=== PATIENT | male | born 1940 | race Caucasian/White ===

== ENCOUNTER 2016-04-16 06:40 | Inpatient (IN) | payer MEDICARE, BC ==
--- NOTE | 2016-04-13 18:00 | PREOPHP ---
DATE OF ADMISSION: 04/16/2016 SURGEON: Faizan Dowd MD CHIEF COMPLAINT: The patient is to be admitted for right shoulder surgery on 04/16/[address] Grady kumar. 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 The patient is now scheduled for right shoulder surgery by Dr. Dowd. PAST MEDICAL HISTORY: Hypertension, type 2 diabetes mellitus, chronic kidney disease stage III, dys lipidemia, gout, coronary artery disease. MEDICATIONS: 1. Avapro 300 mg p.o. daily. 2. Hydrochlorothiazide 25 mg 1/2 tab p.o. daily. 3. Lipitor 20 mg p.o. daily. 4. Atenolol 25 mg p.o. b.i.d. 5. Allopurinol 200 mg p.o. daily. 6. Levemir insulin 40 units subcutaneously daily. 7. Aspirin 81 mg p.o. daily, on hold prior to surgery. 8. Folic acid 1 mg p.o. daily. 9. Onglyza 2.5 mg p.o. daily. ALLERGIES: NO KNOWN ALLERGIES. FAMILY HISTORY: Noncontributory. SOCIAL HISTORY: The patient is and is retired. He smoked cigarettes in the past but has no t smoked in recent years. He drinks alcohol only occasionally. REVIEW OF SYSTEMS: CONSTITUTIONAL: No fever or chills. RESPIRATORY: No shortness of breath, no cough. CARDIOVASCULAR: No chest pain or palpitations. GASTROINTESTINAL: No nausea, vomiting, abdominal pain, diarrhea, constipation, hematochezia or brody na. GENITOURINARY: No dysuria. MUSCULOSKELETAL: Severe pain in the right shoulder recently as noted above. NEUROLOGICAL: No focal weakness, tremors, seizures. PHYSICAL EXAMINATION: GENERAL: Reveals a well-developed, well-nourished man in no distress. VITAL SIGNS: Blood pressure 136/76, heart rate 72 and regular, respiratory rate is 16, temperature 98 degrees. HEENT: EOM full, sclerae are nonicteric Oral mucous membranes moist. NECK: Supple, without adenopathy. CHEST: Clear to auscultation. HEART: Regular rhythm, no rub. ABDOMEN: Soft, nontender. EXTREMITIES: No cyanosis, clubbing or edema. NEUROLOGICAL: The patient is alert and responsive. LABORATORY DATA: Chest x-ray done 04/07/2016 shows normal heart size, clear lung larson. EKG to be done under the direction of the patient's regular sheetmetal patternmaker, Dr. Vlad Sykes. Blood and urine test results are pending. ASSESSMENT: 1. Right shoulder arthritis, scheduled for surgery. 2. Hypertension, controlled. 3. Type 2 diabetes mellitus, controlled. 4. Chronic kidney stage III, stable. RECOMMENDATIONS: 1. Await results of blood and urine testing, cardiology clearance per patient's sheetmetal patternmaker, Dr. Yoshi Sykes. 2. If above satisfactory, the patient is cleared for surgery. Dictated By: ANDI RIOS/HERNANDO Conf#: [id number] DID#: [id number]
[2016-04-15 14:28] VITALS: BMI 25.8
[2016-04-16] VITALS (21 sets, daily range): BP systolic 112–198; BP diastolic 57–98; PULSE 49–72; RESP 14–21; Ht 185.4 cm; Wt 88.0 kg
[~2016-04-16] VITALS: Ht 185.4 cm; Wt 88.0 kg
[2016-04-16] MEDS ORDERED: BUPIVACAINE 0.5% (SDV) 30 ML, morphine SULFATE (PF) 8 MG, EPINEPHrine 0.3 MG, KETOROLAC... IRR SCH ×7 (07:00)
[2016-04-16] MEDS ORDERED: DEXAMETHASONE 1 MG TAB PO ONE (07:00)
[2016-04-16] MEDS ORDERED: CEFAZOLIN 1 GM INJ ONE (07:00)
[2016-04-16] MEDS ORDERED: CEFAZOLIN 2 GM/50 ML (PMX) 50 ML IVPB ONE (07:00)
[2016-04-16] MEDS ORDERED: TRANEXAMIC ACID 1,000 MG in SOD CHLORIDE 0.9% 100 ML IVPB ONE (07:00)
[2016-04-16] MEDS ORDERED: traMADol 50 MG TAB PO ONE (07:00)
[2016-04-16] MEDS ORDERED: GABAPENTIN 300 MG CAP PO ONE (07:00)
[2016-04-16] MEDS ORDERED: oxyCODONE (CR) 10 MG TAB [oxyCONTIN] PO ONE (07:00)
[2016-04-16] MEDS ORDERED: SITA50TA2 PO (08:11)
[2016-04-16] MEDS ORDERED: IRBE300T13 PO (08:11)
[2016-04-16] MEDS ORDERED: HYDR12.58 PO (08:11)
[2016-04-16] MEDS ORDERED: ATEN-51 PO (08:11)
[2016-04-16] MEDS ORDERED: ATOR20TA38 PO (08:11)
[2016-04-16] MEDS ORDERED: LEVEM SC (08:13)
[2016-04-16] MEDS ORDERED: ALLO100T PO (08:13)
[2016-04-16] MEDS ORDERED: ASPI325T4 PO (08:13)
[2016-04-16] MEDS ORDERED: ZOLP5TAB PO (08:15)
--- NOTE | 2016-04-16 08:53 | HPN ---
Date/Time of Note Date/Time of Note DATE: 04/16/16 TIME: 08:52 Interval H&P Admission Note Pt. seen H&P reviewed: No system changes HANSEL ESPINOSA MD Apr 16, 2016 08:53
[2016-04-16] MEDS ORDERED: MIDAZOLAM 1 MG/ML 2 ML INJ ONE (08:54)
[2016-04-16] MEDS ORDERED: ROPIVACAINE 0.5 % 30 ML VIAL ONE (09:00)
[2016-04-16] MEDS ORDERED: THROMBIN 5000 UNIT VIAL ONE (09:19)
[2016-04-16] MEDS ORDERED: BUPIVACAINE 0.5%/EPI (SDV) 30 ML INJ ONE (09:19)
[2016-04-16] MEDS ORDERED: CA CHLORIDE 10% 10 ML SYRINGE ONE (09:19)
[2016-04-16] MEDS ORDERED: POLYMYXIN/BACITRACIN 1L IRRIG ONE (09:19)
[2016-04-16] MEDS ORDERED: NALOXONE (0.4 MG/ML) INJ IV PRN (11:00)
[2016-04-16] MEDS ORDERED: METOCLOPRAMIDE 10 MG INJ IV PRN (11:00)
[2016-04-16] MEDS ORDERED: hydrALAzine 20 MG INJ IV PRN (11:00)
[2016-04-16] MEDS ORDERED: ONDANSETRON 4 MG INJ IV PRN ×2 (11:00→11:30)
[2016-04-16] MEDS ORDERED: FENTAnyl 50 MCG/ML VIAL IV PRN (11:00)
[2016-04-16] MEDS ORDERED: DIPHENHYDRAMINE 50 MG INJ IV PRN ×2 (11:00→11:30)
[2016-04-16] MEDS ORDERED: HYDROmorphONE (0.2 MG/ML) 10ML SYG IV PRN ×2 (11:00)
[2016-04-16] MEDS ORDERED: MEPERIDINE 25 MG INJ IV PRN (11:00)
[2016-04-16] MEDS ORDERED: LABETALOL HCL 20MG INJ IV PRN (11:00)
--- NOTE | 2016-04-16 11:23 | PDOCDIS ---
Discharge Instructions DIAGNOSIS Discharge Diagnosis: Shoulder arthritis CONDITION Patient Condition: Good HOME CARE INSTRUCTIONS: Diet Instructions: Regular ACTIVITY: Activity Restrictions: Slowly Increase Activity Weight Bearing Bathing Restrictions: Shower FOLLOW UP/APPOINTMENTS Appointments Two weeks SCHOOL/WORK RELEASE May return to School/Work with: With Restrictions School/Work Release Comment: Five pound table top usage for six weeks HANSEL ESPINOSA MD Apr 16, 2016 11:23
[2016-04-16] MEDS ORDERED: ROCURONIUM 50 MG INJ ONE (11:28)
[2016-04-16] MEDS ORDERED: GLYCOPYRROLATE 0.4 MG INJ ONE (11:28)
[2016-04-16] MEDS ORDERED: ETOMIDATE 20 MG INJ ONE (11:28)
[2016-04-16] MEDS ORDERED: ONDANSETRON 4 MG INJ ONE (11:28)
[2016-04-16] MEDS ORDERED: NEOSTIGMINE 3 MG/3 ML SYRINGE ONE (11:28)
[2016-04-16] MEDS ORDERED: LIDOCAINE 2% (SDV) 5 ML INJ ONE (11:28)
[2016-04-16] MEDS ORDERED: morphine 4 MG/ML VIAL IV PRN (11:30)
[2016-04-16] MEDS ORDERED: ACETAMINOPHEN 500 MG TAB PO PRN (11:30)
[2016-04-16] MEDS ORDERED: TRANEXAMIC ACID 1,000 MG in SOD CHLORIDE 0.9% 100 ML IV ONE (11:30)
[2016-04-16] MEDS ORDERED: morphine 2 MG INJ IV PRN (11:30)
[2016-04-16] MEDS ORDERED: OXYCODONE/ACETAMINOPHEN (5/325) TAB PO PRN (11:30)
[2016-04-16] MEDS ORDERED: ZOLPIDEM 5 MG TAB PO PRN (11:30)
[2016-04-16] MEDS ORDERED: MAGNESIUM HYDROXIDE 30ML CUP PO PRN (11:30)
[2016-04-16] MEDS ORDERED: KETOROLAC 15 MG INJ IV PRN (11:30)
--- NOTE | 2016-04-16 12:42 | RADRPT ---
PROCEDURE: CR right shoulder CLINICAL INDICATION: Shoulder pain TECHNIQUE: 2 views performed COMPARISON: No comparison available. FINDINGS: There is a postoperative shoulder joint replacement. There is no dislocation. There is no loosening of the prothesis. There is otherwise normal mineralization, architecture and alignment.No fracture or osseous lesion i s identified.The glenohumeral and acromioclavicular joint are unremarkable. There are postoperative soft tissue changes. IMPRESSION: Postoperative shoulder joint replacement Postoperative soft tissue changes. RPTAT: RICNH .Rafiq Wills MD, MD Date Time Electronically viewed and signed by .Rafiq Wills MD, on 04/16/2016 12:41 .B/
--- NOTE | 2016-04-16 12:56 | OPR ---
DATE OF OPERATION: 04/16/2016 SURGEON: Hansel Dowd MD NETWORK APPLICATIONS SPECIALIST: Gerald Moon PA-C PREOPERATIVE DIAGNOSIS: Right shoulder osteoarthritis. POSTOPERATIVE DIAGNOSIS: 1. Primary shoulder glenohumeral arthritis. 2. Primary acromioclavicular joint arthritis. OPERATION PERFORMED: 1. Right open total shoulder replacement. 2. Right open distal clavicle excision. Career Developer surgeon, Gerald Moon PA-C, was asked to be present at my request as a result of the complexity associated with this procedure, including positioning of the extremity, manipulation and protection of the neurovascular structures. In my opinion, the assistance offered by a surgical sc rub tech is insufficient and Mr. Moon should be compensated for his time. PROCEDURE IN DETAIL: Following administration of general endotracheal anesthesia, the patient was p laced in the beach chair position. The right upper extremity was prepped and draped in the usual st erile fashion and extended deltopectoral incision was then undertaken, first exposing the superior a spect of the acromioclavicular joint. The AC joint capsule was then incised from medial to lateral and indirectly the distal clavicle was then excised for a distance of 10 mm. Severe arthritic morfin es were noted in that joint. The AC joint capsule was then closed using a #2 permanent suture. Attention was then directed to the deltopectoral interval. Subscapularis was identified and incised . The biceps tendon was tenodesed to the bicipital groove with the intraarticular portion being res ected. Severe arthritic changes were noted as well as a partial tear of the biceps tendon. The int ra-articular portion was resected. The humeral head was then osteotomized in the proper degree of v ersion and inclination followed by removal of peripheral osteophytes. The joint was then retracted. Peripheral osteophytes were removed from around the glenoid. Capsulectomy completed. The central canal was entered and prepared for a 48 mm DePuy glenoid component. The actual glenoid component w as then cemented with solid fixation. The humerus was then reamed up to the 14 mm size followed by implantation with a 58 mm humeral head. The joint was taken through a full range of motion with no evident instability. The joint was then thoroughly irrigated. The subscapularis was reapproximated with #2 permanent sut ures that were passed circumferentially around the humerus. A range of motion was then checked once again, no instability and full range of motion. The skin and soft tissues were irrigated, closed in layers followed by a Prineo dressing where a mis ertight closure was obtained. The patient was awakened, transported to recovery in stable condition after being placed in a sling. Estimated blood loss for this procedure was 100 mL. Postoperative radiographs will be obtained in the recovery room. Dictated By: HANSEL MOLINA/HERNANDO Conf#: [id number] DID#: [id number]
[2016-04-16] MEDS: DEXAMETHASONE 2 MG TAB PO SCH ×2 (18:00→18:23)
[2016-04-16] MEDS: CEFAZOLIN 1 GM/50 ML (PMX) 50 ML IVPB SCH ×2 (18:24→19:30)
[2016-04-16] MEDS ORDERED: CEPASTAT LOZENGE MT PRN (19:30)
[2016-04-16] MEDS: ACCUCHECK XX SCH (20:45)
[2016-04-16] MEDS: SENNA/DOCUSATE NA (8.6MG/50MG) TAB PO SCH (20:45)
[2016-04-16] MEDS: ATENOLOL 25 MG TAB PO SCH (20:45)
[2016-04-16] MEDS: OXYCODONE/ACETAMINOPHEN (5/325) TAB PO PRN (20:55)
[2016-04-16] MEDS ORDERED: ATORVASTATIN 20 MG TAB PO SCH (21:00)
[2016-04-16] MEDS ORDERED: GABAPENTIN 300 MG CAP PO SCH (21:00)
[2016-04-16] MEDS ORDERED: INSULIN DETEMIR [LEVEMIR] 3ML CART SC SCH (21:00)
[2016-04-17 00:20] VITALS: BP 100/54; PULSE 64; RESP 20
[2016-04-17] MEDS: DEXAMETHASONE 2 MG TAB PO SCH ×2 (00:37→05:40)
[2016-04-17] MEDS: CEFAZOLIN 1 GM/50 ML (PMX) 50 ML IVPB SCH (03:16)
[2016-04-17 05:45] VITALS: BP 116/56; PULSE 54; RESP 20
--- NOTE | 2016-04-17 06:44 | DS ---
Date/Time of Note Date/Time of Note DATE: 04/17/16 TIME: 06:43 Discharge Summary Admission/Discharge Info Admit Date/Time Apr 16, 2016 at 06:40 Discharge Date/Time April 17, 2016 following occupational therapy Final Diagnosis Right shoulder osteoarthritis Patient Condition: Good Hx of Present Illness Pain and stiffness in the right shoulder Hospital Course Admitted, underwent surgical procedure went home the next day with no problems Home Meds Reported Medications Zolpidem Tartrate* (Ambien*) 5 Mg Tablet, 5 MG PO QHS Y for INSOMNIA, #30 TAB 04/16/16 Aspirin* (Aspirin*) 325 Mg Tablet, 81 MG PO DAILY, TAB 04/16/16 Insulin Detemir (Levemir) 100 Unit/1 Ml Vial, 40 UNIT SC QHS, VIAL 04/16/16 Allopurinol* (Allopurinol*) 100 Mg Tablet, 200 MG PO DAILY, TAB 04/16/16 Atorvastatin Calcium* (Atorvastatin Calcium*) 20 Mg Tablet, 20 MG PO QHS, #30 TAB 04/16/16 Atenolol* (Atenolol*) 25 Mg Tablet, 25 MG PO BID, #60 TAB 04/16/16 Hydrochlorothiazide* (Hydrochlorothiazide*) 12.5 Mg Tablet, 12.5 MG PO DAILY, # 30 TAB 04/16/16 Irbesartan* (Avapro*) 300 Mg Tablet, 300 MG PO DAILY, TAB 04/16/16 Sitagliptin* (Januvia*) 50 Mg Tablet, 50 MG PO DAILY, #30 TAB 04/16/16 Follow-up Plan 2 weeks Pending Labs Laboratory Tests Test 04/16/16 08:05 04/16/16 20:38 Bedside Glucose 128mg/dL (70-220) 231mg/dL (70-220) HANSEL ESPINOSA MD Apr 17, 2016 06:44
--- NOTE | 2016-04-17 06:46 | PN ---
Date/Time of Note Date/Time of Note DATE: 04/17/16 TIME: 06:45 24 hour Interval Summary Patient experienced minimal pain overnight. He is comfortable this morning. Clinical examination reveals that his wound is clean and dry. He is neurologically intact. He has no signs of DVT. Assessment: Status post total shoulder replacement Plan: Occupational therapy followed by discharge home. Physical Exam Vital Signs Date Time Temp Pulse Resp B/P Pulse Ox O2 Delivery O2 Flow Rate FiO2 04/17/16 05:45 97.8 54 20 116/56 96 Nasal Cannula 04/17/16 00:20 2.0 Intake and Output 04/16/16 04/16/16 04/17/16 15:00 23:00 07:00 Intake Total 1000 ml 50 ml 590 ml Output Total 75 ml Balance 925 ml 50 ml 590 ml VTE Prophylaxis VTE Prophylaxis Intervention: anti-embolic stocking Lines/Catheters IV Catheter Type: Saline Lock [place] in Place: No Results Results 24hrs Laboratory Tests Test 04/16/16 08:05 04/16/16 20:38 Bedside Glucose 128 231 H Assessment/Plan Chief Complaint/Hosp Course Admitted, underwent surgical procedure went home the next day with no problems Problems: Medications Medications Home Meds Reported Medications Zolpidem Tartrate* (Ambien*) 5 Mg Tablet, 5 MG PO QHS Y for INSOMNIA, #30 TAB 04/16/16 Aspirin* (Aspirin*) 325 Mg Tablet, 81 MG PO DAILY, TAB 04/16/16 Insulin Detemir (Levemir) 100 Unit/1 Ml Vial, 40 UNIT SC QHS, VIAL 04/16/16 Allopurinol* (Allopurinol*) 100 Mg Tablet, 200 MG PO DAILY, TAB 04/16/16 Atorvastatin Calcium* (Atorvastatin Calcium*) 20 Mg Tablet, 20 MG PO QHS, #30 TAB 04/16/16 Atenolol* (Atenolol*) 25 Mg Tablet, 25 MG PO BID, #60 TAB 04/16/16 Hydrochlorothiazide* (Hydrochlorothiazide*) 12.5 Mg Tablet, 12.5 MG PO DAILY, # 30 TAB 04/16/16 Irbesartan* (Avapro*) 300 Mg Tablet, 300 MG PO DAILY, TAB 04/16/16 Sitagliptin* (Januvia*) 50 Mg Tablet, 50 MG PO DAILY, #30 TAB 04/16/16 HANSEL ESPINOSA MD Apr 17, 2016 06:46
[2016-04-17] MEDS: ACCUCHECK XX SCH (07:20)
[2016-04-17 07:33] VITALS: BP 102/55; RESP 19
[2016-04-17] MEDS: SENNA/DOCUSATE NA (8.6MG/50MG) TAB PO SCH (08:45)
[2016-04-17] MEDS: OXYCODONE/ACETAMINOPHEN (5/325) TAB PO PRN (08:54)
[2016-04-17] MEDS ORDERED: ASPIRIN 81 MG TAB PO SCH (09:00)
[2016-04-17] MEDS ORDERED: LOSARTAN 50 MG TAB PO SCH (09:00)
[2016-04-17] MEDS ORDERED: HYDROCHLOROTHIAZIDE 12.5 MG CAP PO SCH (09:00)
[2016-04-17] MEDS ORDERED: ALLOPURINOL 100 MG TAB PO SCH (09:00)
[2016-04-17] MEDS: ATENOLOL 25 MG TAB PO SCH (09:00)
== END 2016-04-17 10:30 | disposition home or self-care (01) | DRG 483 ==
LOC: REC 06:40 → MS1 12:54
PROVIDERS: ADMIT Orthopaedic Surgery; ATTEND Orthopaedic Surgery
PROC: 0PB90ZZ Excision of Right Clavicle, Open Approach (ICD-10-PCS; 2016-04-16)
PROC: 0RRJ0JZ Replacement of Right Shoulder Joint with Synthetic Substitute, Open Approach (ICD-10-PCS; principal; 2016-04-16 09:30)
DX: M19.011 Primary osteoarthritis, right shoulder (principal); E11.22 Type 2 diabetes mellitus with diabetic chronic kidney disease; N18.3 Chronic kidney disease, stage 3 (moderate); I25.10 Atherosclerotic heart disease of native coronary artery without angina pectoris; E78.5 Hyperlipidemia, unspecified; I12.9 Hypertensive chronic kidney disease with stage 1 through stage 4 chronic kidney disease, or unspecified chronic kidney disease; M10.9 Gout, unspecified; Z79.82 Long term (current) use of aspirin
CPT/HCPCS: 82962; 97166; J0171; J0690; J0735; J1815; J1885; J2250; J2270; J2274; J2405; J2710; J2795; J3010; J3370